=== PATIENT | female | born 1985 | race Hispanic/Latino ===

== ENCOUNTER → 2020-08-13 | Outpatient (CLI) | payer OTHER | END | disposition home or self-care (01) | LOC: OIH 09:52 | PROVIDERS: ATTEND Internal Medicine | DX: R07.9 Chest pain, unspecified (principal) | CPT/HCPCS: 71046; 72070 ==

== ENCOUNTER → 2020-10-22 | Outpatient (CLI) | payer OTHER | END | disposition home or self-care (01) | LOC: OIH 09:35 | PROVIDERS: ATTEND Internal Medicine | DX: M51.34 Other intervertebral disc degeneration, thoracic region (principal); M43.24 Fusion of spine, thoracic region | CPT/HCPCS: 71046; 72070 ==

== ENCOUNTER → 2020-11-06 | Outpatient (CLI) | payer OTHER | END | disposition home or self-care (01) | LOC: RAH 08:11 | PROVIDERS: ATTEND Internal Medicine | DX: M41.9 Scoliosis, unspecified (principal) | CPT/HCPCS: 72082 ==